=== PATIENT | male | born 2005 | race Caucasian/White ===

== ENCOUNTER 2023-01-08 11:12 | Emergency (ER) | payer SELFPAY ==
[~2023-01-08] VITALS: Ht 167.6 cm; Wt 59.0 kg
[2023-01-08 11:27] VITALS: BP 124/87
[2023-01-08 12:40] LABS: BASOPHILS % 0.2 % (0.0-2.0); HEMATOCRIT. 44.1 % (42.0-52.0); HEMOGLOBIN. 14.2 g/dL (14.0-18.0); LYMPHOCYTES % 17.6 % (20.0-50.0); MEAN CORPUSCULAR VOLUME 77.4 fL (80.0-94.0); MONOCYTES % 6.2 % (2.0-8.0); PLATELET 263 x1000/uL (130-400); RED BLOOD CELL COUNT 5.69 mill/uL (4.7-6.1); RED CELL DISTRIBUTION WIDTH 20.7 % (11.6-14.6)
[2023-01-08 12:45] LABS: CHLORIDE 109 mEq/L (98-107)
== END 2023-01-08 17:08 | disposition left against medical advice (07) ==
LOC: ER 13:03
DX: Z53.21 Procedure and treatment not carried out due to patient leaving prior to being seen by health care provider (principal)
CPT/HCPCS: 36415; 71045; 80053; 84484; 85025; 99281

== ENCOUNTER 2023-01-08 21:10 | Emergency (ER) | payer SELFPAY ==
[~2023-01-08] VITALS: Ht 167.6 cm; Wt 69.0 kg
[2023-01-08 23:38] LABS: BASOPHILS % 0.3 % (0.0-2.0); HEMOGLOBIN. 14.6 g/dL (14.0-18.0); LYMPHOCYTES % 46.6 % (20.0-50.0); MEAN CORPUSCULAR HEMOGLOBIN 24.9 pg (28.0-32.0); MEAN CORPUSCULAR VOLUME 77.1 fL (80.0-94.0); MEAN PLATELET VOLUME 9.1 fl (7.4-10.4); MONOCYTES % 9.1 % (2.0-8.0); PLATELET 255 x1000/uL (130-400); RED BLOOD CELL COUNT 5.84 mill/uL (4.7-6.1); RED CELL DISTRIBUTION WIDTH 20.9 % (11.6-14.6)
[2023-01-08 23:46] LABS: CHLORIDE 108 mEq/L (98-107)
[2023-01-09 00:13] LABS: ETHANOL BLOOD 297 mg/dL (-10)
[2023-01-09 00:29] LABS: *AMPHETAMINES SCREEN URINE NEGATIVE (NEGATIVE); *BARBITURATES SCREEN URINE NEGATIVE (NEGATIVE); *BENZODIAZEPINES SCREEN URINE NEGATIVE (NEGATIVE); *COCAINE SCREEN URINE NEGATIVE (NEGATIVE); CANNABINOID URINE SCREEN NEGATIVE (NEGATIVE); METHADONE URINE SCREEN NEGATIVE (NEGATIVE); OPIATES URINE SCREEN NEGATIVE (NEGATIVE); PHENCYCLIDINE URINE SCREEN NEGATIVE (NEGATIVE)
[2023-01-09 10:47] VITALS: BP 146/57
== END 2023-01-09 12:00 | disposition home or self-care (01) ==
LOC: ER 21:10
DX: R45.851 Suicidal ideations (principal); Z20.822 Contact with and (suspected) exposure to COVID-19
CPT/HCPCS: 36415; 80053; 80305; 80307; 80320; 80329; 85025; 87426; 99283; C9803; Z7610; G0480